=== PATIENT | female | born 1975 | race Caucasian/White ===

== ENCOUNTER 2022-06-22 09:50 | Outpatient (CLI) | payer BC | END 2022-06-22 09:51 | disposition home or self-care (01) | LOC: BICMAMMO 09:50 | PROVIDERS: ATTEND Surgery | DX: Z12.31 Encounter for screening mammogram for malignant neoplasm of breast (principal); Z80.3 Family history of malignant neoplasm of breast | CPT/HCPCS: 77063; 77067 ==

== ENCOUNTER 2022-11-30 09:43 | Day surgery (SDC) | payer BC ==
[2022-11-28 12:24] VITALS: BMI 22.4
[2022-11-30] MEDS ORDERED: Bupivacaine HCl 0.5%/Epinephrine 1:200,000/PF 30 ml Vial ONE (10:29)
[2022-11-30] MEDS ORDERED: Lidocaine 2% PF 5 ML VIAL ONE (10:29)
[2022-11-30] MEDS ORDERED: Scopolamine 1.5 mg/72 hour Patch ONE (10:42)
[2022-11-30] MEDS ORDERED: PROPOFOL 200 MG/20 ML VIAL ONE (10:53)
[2022-11-30] MEDS ORDERED: Dexamethasone 20 MG/5 ML VIAL ONE (10:53)
[2022-11-30] MEDS ORDERED: Ketorolac Tromethamine 30 MG/ML VIAL ONE (10:53)
[2022-11-30] MEDS ORDERED: Lidocaine 1% PF 5 ML VIAL ONE (10:53)
[2022-11-30] MEDS ORDERED: Ondansetron PF 4 MG/2 ML Vial ONE (10:53)
[2022-11-30] MEDS ORDERED: Metoclopramide HCl 10 MG/2 ML VIAL ONE (10:53)
[2022-11-30] MEDS ORDERED: Sodium Chloride 0.9% 100 ML ONE (11:43)
[2022-11-30] MEDS ORDERED: CEFAZOLIN 2 GM VIAL ONE (11:43)
[2022-11-30] MEDS ORDERED: Midazolam HCl 2 mg/2 ml Vial ONE (11:47)
[2022-11-30] MEDS ORDERED: Fentanyl 250 MCG/5 ML VIAL ONE (11:54)
== END 2022-11-30 14:30 | disposition home or self-care (01) ==
LOC: SDC 09:43
PROVIDERS: ATTEND Surgery
PROC: 0JBD0ZZ Excision of Right Upper Arm Subcutaneous Tissue and Fascia, Open Approach (ICD-10-PCS; principal; 2022-11-30)
DX: M79.89 Other specified soft tissue disorders (principal); Z86.16 Personal history of COVID-19
CPT/HCPCS: 88304; J1100; J1885; J2001; J2250; J2405; J2704; J2765; J3010; J3490